=== PATIENT | female | born 1960 | race Caucasian/White ===

== ENCOUNTER 2016-12-07 10:46 | Inpatient (IN) | payer MEDICAID, OTHER ==
--- NOTE | 2016-12-07 11:55 | ED ---
Psych HPI - General Chief Complaint: Psychiatric Symptoms Stated Complaint: Mental Health Time Seen by Provider: 12/07/16 10:50 Source: patient, EMS, RN notes reviewed Mode of arrival: EMS Limitations: no limitations - History of Present Illness Initial Comments: This is a 56-year-old female presents emergency department via EMS for psychiatric evaluation. Patient is currently petition inserted by psychiatrist. Patient is a current manic state. Patient denies any homicidal or suicidal thoughts though there is reports of threats. Patient denies illicit drug use or alcohol use. Patient states she is taking her medication as directed. Patient denies any physical complaints at this time. - Related Data Home Medications Medication Instructions Recorded Confirmed Divalproex ER [Depakote ER] 500 mg PO DAILY 12/07/16 12/07/16 Divalproex [Depakote] 1,000 mg PO HS 12/07/16 12/07/16 Fluticasone Nasal [place] [Flonase 2 spray EA NOSTRIL DAILY PRN 12/07/16 12/07/16 Nasal [place]less] Loratadine [Claritin] 10 mg PO DAILY 12/07/16 12/07/16 clonazePAM [KlonoPIN] 1 mg PO DAILY 12/07/16 12/07/16 Allergies Allergy/AdvReac Type Severity Reaction Status Date / Time cephalexin monohydrate Allergy Unknown Verified 12/07/16 11:18 [From Keflex] codeine Allergy Unknown Verified 12/07/16 11:18 egg Allergy Unknown Verified 12/07/16 11:18 erythromycin base Allergy Unknown Verified 12/07/16 11:18 gluten Allergy Abdominal Verified 12/07/16 11:18 Pain green pepper Allergy Unknown Verified 12/07/16 11:18 milk Allergy Unknown Verified 12/07/16 11:18 Opioids - Morphine Analogues Allergy Unknown Verified 12/07/16 11:18 Penicillins Allergy Unknown Verified 12/07/16 11:18 Sulfa (Sulfonamide Allergy Unknown Verified 12/07/16 11:18 Antibiotics) tomato Allergy Unknown Verified 12/07/16 11:18 tramadol Allergy Unknown Verified 12/07/16 11:18 Review of Systems ROS Statement: Those systems with pertinent positive or pertinent negative responses have been documented in the HPI. ROS Other: All systems not noted in ROS Statement are negative. Past Medical History Past Medical History: Osteoarthritis (OA) Additional Past Medical History / Comment(s): Seasonal ALLERGIES, gastroesophageal reflux disease, chronic low back pain History of Any Multi-Drug Resistant Organisms: None Reported Past Surgical History: No Surgical Hx Reported Past Psychological History: Anxiety, Bipolar, Depression Smoking Status: Current every day smoker Past Alcohol Use History: Daily Past Drug Use History: Marijuana General Exam Limitations: no limitations General appearance: alert, in no apparent distress Head exam: Present: atraumatic, normocephalic, normal inspection Respiratory exam: Present: normal lung sounds bilaterally. Absent: respiratory distress, wheezes, rales, rhonchi, stridor Cardiovascular Exam: Present: regular rate, normal rhythm, normal heart sounds. Absent: systolic murmur, diastolic murmur, rubs, gallop, clicks Neurological exam: Present: alert, oriented X3, CN II-XII intact Psychiatric exam: Present: manic Skin exam: Present: warm, dry, intact, normal color. Absent: rash Course Vital Signs 12/07/16 10:50 Temperature 98 F Pulse Rate 74 Respiratory 20 Rate Blood Pressure 111/62 O2 Sat by Pulse 98 Oximetry Medical Decision Making - Lab Data Lab Results 12/07/16 Range/Units 11:50 Urine Opiates Screen Not Detected (NotDetected) Ur Oxycodone Screen Not Detected (NotDetected) Urine Methadone Screen Not Detected (NotDetected) Ur Propoxyphene Screen Not Detected (NotDetected) Ur Barbiturates Screen Not Detected (NotDetected) U Tricyclic Antidepress Not Detected (NotDetected) Ur Phencyclidine Scrn Not Detected (NotDetected) Ur Amphetamines Screen Not Detected (NotDetected) U Methamphetamines Scrn Not Detected (NotDetected) U Benzodiazepines Scrn Not Detected (NotDetected) Urine Cocaine Screen Not Detected (NotDetected) U Marijuana (THC) Screen Detected H (NotDetected) Disposition Clinical Impression: Psychosis, Kavitha (monopolar) single episode or unspecified Disposition: ADMITTED IP TO THIS HOSP
[2016-12-07] MEDS ORDERED: MAGNESIUM HYDROXIDE 2,400 MG/10 ML CUP PO PRN (14:13)
[2016-12-07] MEDS ORDERED: FLUTICASONE 50MCG/SPRAY NASAL 16GM EA NOSTRIL PRN (14:17)
[2016-12-07] MEDS ORDERED: LORazepam 2 MG/ML SYRINGE IM PRN ×2 (14:26→18:29)
[2016-12-07] MEDS ORDERED: ZIPRASIDONE 20 MG VIAL IM ONE (14:59)
[2016-12-07] MEDS: ZIPRASIDONE 20 MG VIAL IM PRN (14:59)
[2016-12-07] MEDS ORDERED: WATER FOR INJECTION, STERILE 10 ML IV ONE (14:59)
[2016-12-07] MEDS ORDERED: HALOPERIDOL LACTATE 5 MG/ML 1 ML VIAL IM PRN (16:13)
[2016-12-07] MEDS: BENZTROPINE 2 MG/2 ML AMP IM PRN (16:30)
[2016-12-07] MEDS ORDERED: cloNIDine HCL 0.2 MG TAB PO PRN (18:30)
[2016-12-07] MEDS: clonazePAM 1 MG TAB PO SCH (22:31)
[2016-12-07] MEDS: DIVALPROEX ER 500 MG TAB.ER.24H PO SCH (22:31)
[2016-12-08] MEDS: NICOTINE 14MG/24HR PATCH TRANSDERM SCH (09:04)
[2016-12-08] MEDS: LORATADINE 10 MG TAB PO SCH (09:04)
[2016-12-08] MEDS: DIVALPROEX ER 500 MG TAB.ER.24H PO SCH ×2 (09:04→19:14)
--- NOTE | 2016-12-08 09:34 | P.HP ---
Psychiatric H&P - . H&P Date: 12/08/16 History & Physical: IDENTIFYING DATA: Mrs. Kim is a 56-year-old female admitted to the psychiatric unit involuntarily. HISTORY OF PRESENT ILLNESS: According to the petition, completed by a nurse at [facility], she has been acting erratic and making statements to harm her . She has not been taking her psychiatric medications. I reviewed the medical record and attempted to interview Mrs. Cason. She was markedly manic, restless and hyperverbal. She began the interview by correcting me that her name is not Yoav it is Wilmer "H-O-O-D like Hector Guillen ". She alleged that she became unwell when her son and his girlfriend moved into their home. She talked about insisting that did not use drugs or alcohol then talked about picking up bottles "all over the house." She showed flight of ideas and pressured speech. She perseverated on several themes. She talked about having multiple medical problems and constant pain and at one point requested referral for rehabilitation. She talked about her son giving her methadone and her using every opiate "imaginable". She she is angry with her whom she blames for this hospitalization. She was very religiously preoccupied and left the office perseverating on the "blood of Sriram". According to information from [facility], she has been decompensating over the last few weeks. She refused various medication options presented to her during the medication reviews. She was angry, labile and complained of insomnia. Her current medications include BuSpar 5 mg 3 times a day, Depakote 500 mg in morning and 1000 mg at bedtime, Klonopin one milligrams at bedtime and Lexapro 5 mg daily. She refused to continue Abilify. She became angrier and left the office when I suggested treatment with such medications as Seroquel or Abilify. Her UDS was positive for marijuana. Her serum valproic acid level was 83.0 PAST PSYCHIATRIC HISTORY: She has been admitted to this unit 7 times; the last was in January 2016. Her discharge diagnoses was bipolar disorder depressed and her discharge medications included following psychotropic medications: Ativan 0.5 mg bedtime, Depakote 500 mg daily 1000 mg at bedtime, Desyrel 100 mg at bedtime and Zoloft 50 mg daily. PAST MEDICAL HISTORY: According to record she has a history of osteoarthritis, gastroesophageal reflux disease and chronic low back pain. ALLERGIES: She is ALLERGIC to cephalexin, codeine, erythromycin. morphine analogues, penicillin, sulfa and tramadol. SUBSTANCE USE HISTORY: She talked about using opiate drugs and requested referral for substance abuse treatment but her thinking was so disorganized that it was difficult to understand her answers to questions about her substance use and substance use history. According to the record she has history of crack cocaine, heroin and alcohol binge use. She been treated at [facility] in [place] in the past. There is no history of IV drug abuse. FAMILY PSYCHIATRIC/SUBSTANCE USE HISTORY: According to record her daughter, parent, son and 2 sisters have a bipolar disorder. Her daughter has alcohol use and drug use disorders. Her son has history of heroin use.. LEGAL HISTORY: She denied current legal problems SOCIAL HISTORY: She lives with her and milk in [place]. They have been for 36 years. She has 3 children and 6 grandchildren. MENTAL STATUS EXAM: She presented as a result restless and disheveled appearing 56-year-old female who was minimally cooperative with the interview. She made intermittent eye contact but appeared to attend to the interview. She had no prominent physical abnormalities were distinguishing features. She had a labile facial expression. She was alert and oriented to person and place. She was agitated, restless and irritable. Her speech was pressured to the point where she was foaming at the mouth. Her affect was irritable, angry and labile at times becoming intense and appropriate. She denied suicidal ideation, wishes or homicidal ideation. She denied feeling hopeless or helpless. She ruminated on several themes as described above. She did not express ideas of reference or paranoid ideation. She denied express a clear delusional belief. Her thinking was concrete and associations were not organized, coherent or logical. She express clang associations, perseverations and neologisms.. She denied hallucinations and did not appear to be responding to internal stimuli. Global impression of intellect is average. She is aware of her illness but denies need for mental health treatment. STRENGTHS: Supportive family, stable housing, engagement in outpatient mental health services. WEAKNESSES: Resistance to medical recommendations, sotero. IMPRESSION: She is a 56-year-old female who has a history of bipolar disorder. She presented with signs and symptoms of sotero that develop approximately 2-3 weeks prior to admission. She has been resistant to changes in her treatment despite several efforts from her outpatient psychiatrist. She should be treated involuntarily on the inpatient unit with a combination of psychotropic and multimodal therapy. PRINCIPLE DIAGNOSIS: Bipolar disorder manic severe RECOMMENDATION: Continue inpatient psychiatric hospitalization due to the severity of her sotero. Completed the second clinical certificate and submit the Petition and supporting Clinical Certificates to probate Court for involuntary hospitalization. Continue Depakote 1500 mg daily and begin an antipsychotic/mood stabilizer once we obtain an involuntary treatment order. Continue Ativan 1 mg by mouth/IM 3 times a day when necessary for agitation, Geodon 20 mg IM twice a day for agitation or psychosis and haloperidol 5 mg IM every 6 hours when necessary for agitation or psychosis. Suicide precautions with 15 minute checks. Consult medicine for initial physical exam and medical history. Monitor nutritional and hydration status. Obtain collateral information from family. Encourage participation in therapeutic groups and activities as tolerated. Evaluate clinical status response to treatment daily basis. Allergies Allergy/AdvReac Type Severity Reaction Status Date / Time cephalexin monohydrate Allergy Unknown Verified 12/07/16 11:18 [From Keflex] codeine Allergy Unknown Verified 12/07/16 11:18 egg Allergy Unknown Verified 12/07/16 11:18 erythromycin base Allergy Unknown Verified 12/07/16 11:18 gluten Allergy Abdominal Verified 12/07/16 11:18 Pain green pepper Allergy Unknown Verified 12/07/16 11:18 milk Allergy Unknown Verified 12/07/16 11:18 Opioids - Morphine Analogues Allergy Unknown Verified 12/07/16 11:18 Penicillins Allergy Unknown Verified 12/07/16 11:18 Sulfa (Sulfonamide Allergy Unknown Verified 12/07/16 11:18 Antibiotics) tomato Allergy Unknown Verified 12/07/16 11:18 tramadol Allergy Unknown Verified 12/07/16 11:18 Vital Signs Temp 98.1 F 12/07/16 18:26 Pulse 65 12/07/16 22:30 Resp 16 12/07/16 22:30 BP 98/54 12/07/16 22:30 Pulse Ox 93 L 12/07/16 18:26 Laboratory Last Values Urine Opiates Screen Not Detected (NotDetected) 12/07/16 11:50 Ur Oxycodone Screen Not Detected (NotDetected) 12/07/16 11:50 Urine Methadone Screen Not Detected (NotDetected) 12/07/16 11:50 Ur Propoxyphene Screen Not Detected (NotDetected) 12/07/16 11:50 Ur Barbiturates Screen Not Detected (NotDetected) 12/07/16 11:50 Valproic Acid 83.0 ug/mL 12/07/16 12:37 U Tricyclic Antidepress Not Detected (NotDetected) 12/07/16 11:50 Ur Phencyclidine Scrn Not Detected (NotDetected) 12/07/16 11:50 Ur Amphetamines Screen Not Detected (NotDetected) 12/07/16 11:50 U Methamphetamines Scrn Not Detected (NotDetected) 12/07/16 11:50 U Benzodiazepines Scrn Not Detected (NotDetected) 12/07/16 11:50 Urine Cocaine Screen Not Detected (NotDetected) 12/07/16 11:50 U Marijuana (THC) Screen Detected (NotDetected) H 12/07/16 11:50 12/08/16 07:52 12/08/16 09:06
[2016-12-08 10:43] LABS: ALT 29 U/L (9-52); AST 32 U/L (14-36); Alkaline Phosphatase 63 U/L (38-126); Anion Gap 10 mmol/L; Blood Urea Nitrogen 21 mg/dL (7-17); Calcium 9.9 mg/dL (8.4-10.2); Carbon Dioxide 27 mmol/L (22-30); Chloride 99 mmol/L (98-107); Glucose 88 mg/dL (74-99); Non-African American GFR(MDRD) 52 (>60 ml/min/1.73 sqM); Potassium 3.8 mmol/L (3.5-5.1); Sodium 136 mmol/L (137-145); Total Bilirubin 0.8 mg/dL (0.2-1.3); Total Protein 7.3 g/dL (6.3-8.2)
[2016-12-08 10:50] LABS: Basophils % (A) 0 %; CH 31.8; CHCM 33.9; Eosinophils % (A) 0 %; HCT 44.1 % (34.0-46.0); HDW 2.11; HGB 14.7 gm/dL (11.4-16.0); Luc # (Auto) 0.16; Luc % (Auto) 2; Lymphocytes # (A) 2.2 k/uL (1.0-4.8); Lymphocytes % (A) 23 %; MCH 31.4 pg (25.0-35.0); MCHC 33.4 g/dL (31.0-37.0); MCV 94.2 fL (80.0-100.0); Mean Platelet Volume 8.8; Monocytes # (A) 0.7 k/uL (0-1.0); Monocytes % (A) 8 %; Neutrophils # (A) 6.4 k/uL (1.3-7.7); Neutrophils % (A) 67 %; RBC 4.69 m/uL (3.80-5.40); RDW 13.5 % (11.5-15.5); WBC 9.7 k/uL (3.8-10.6); WBC (Perox) 9.38
[2016-12-08] MEDS: clonazePAM 1 MG TAB PO SCH (21:51)
[2016-12-09 04:33] LABS: Appearance,Urine Clear (Clear); Bilirubin,Urine Negative (Negative); Glucose,Urine (UA) Negative (Negative); Ketones,Urine Trace (Negative); Leukocyte Esterase,Urine Negative (Negative); Nitrite,Urine Negative (Negative); Protein,Urine Negative (Negative); Specific Gravity,Urine 1.009 (1.001-1.035); UA Billing (MACRO vs. MICRO) CHEM; Urobilinogen,Urine <2.0 mg/dL (<2.0)
[2016-12-09] MEDS ORDERED: WATER FOR INJECTION, STERILE 10 ML IV ONE ×2 (05:18→21:58)
[2016-12-09] MEDS ORDERED: ZIPRASIDONE 20 MG VIAL IM ONE ×3 (05:18→22:30)
[2016-12-09] MEDS: ZIPRASIDONE 20 MG VIAL IM PRN (05:18)
--- NOTE | 2016-12-09 07:57 | P.PN ---
Progress Note - Text Interval history: The patient is found in the library she follows me to an interview room. The patient was admitted for acute symptoms of sotero. She is currently maintained on Depakote ER 1500 mg. The patient remains pressured she has a constant stream of speech unless interrupted. Thought process is tangential and demonstrates loose associations sometimes flight of ideas. She remains resistant to initiating an antipsychotic mood stabilizer with her Depakote. It's reported that she slept only a few hours last evening. She reports appetite is stable. She speaks at length how several the antipsychotic medications are inappropriate for her. The process has been started for involuntary commitment/treatment. Mental status exam: The patient is a shorter statured overweight female she has a disheveled appearance with impaired hygiene. She is dressed in her own clothing. Eye contact is appropriate. Speech is fluent and spontaneous pressured at times. She demonstrates a thought process that is not well organized. She endorses no auditory or visual hallucinations. She may have a delusional thought content although not endorsed. Insight and judgment impaired. She demonstrates no verbal or physical aggressiveness. Affect is blunted. Plan: The patient will continue on her current medications we discussed several atypical antipsychotic options that we could add to the Depakote she refuses each. We will monitor for safety and encourage her participation in the milieu. Vital signs reviewed.
[2016-12-09] MEDS: DIVALPROEX ER 500 MG TAB.ER.24H PO SCH (08:39)
[2016-12-09] MEDS: NICOTINE 14MG/24HR PATCH TRANSDERM SCH (08:39)
[2016-12-09] MEDS: LORATADINE 10 MG TAB PO SCH (08:40)
[2016-12-09] MEDS: ACETAMINOPHEN TAB 325 MG TAB PO PRN ×2 (09:44→13:08)
[2016-12-09] MEDS ORDERED: diphenhydrAMINE 50 MG CAP ONE (22:30)
[2016-12-09] MEDS ORDERED: DIVALPROEX ER 500 MG TAB.ER.24H PO ONE (22:30)
[2016-12-09] MEDS ORDERED: MAG HYDROX/AL HYDROX/SIMETH 30 ML CUP ONE (22:30)
[2016-12-10] MEDS ORDERED: diphenhydrAMINE 25 MG CAP PO STA (02:12)
[2016-12-10] MEDS: IPRATROPIUM-ALBUTEROL 3 ML NEB INHALATION PRN ×4 (02:41→21:43)
--- NOTE | 2016-12-10 08:52 | P.PN ---
Progress Note - Text Interval history: The patient is found in the hallway she follows me to an interview room. The patient continues to demonstrate symptoms of sotero. She has a constant stream of speech. She demonstrates a labile affect. She reports "I've been sad for so long and now, I'm a butterfly" she reports sleep is decreased. She refuses to voluntarily take any antipsychotic other than Geodon. She has found the injections helpful and we discussed instituting an oral dose to tried to accelerate mood stabilization. Mental status exam: The patient is alert she is hyperactive she has pressured speech. Thought process demonstrates tangential thinking loose associations and flight of ideas. Affect demonstrates significant lability including tearfulness and laughter. She is reporting no suicidal or homicidal thoughts. She endorses no hallucinations but there may be some delusional thought content. Insight and judgment are impaired. She demonstrates no verbal or physical aggressiveness. She has fair hygiene she has a disheveled appearance. She is ambulating with an orthopedic walking boot on her lower extremity. Plan: The patient's will continue on the Depakote ER we will add Geodon 40 mg twice daily to try to further stabilize mood and addressing manic symptoms. Geodon will likely need to be titrated fairly quickly. Geodon is the only atypical antipsychotic she is agreeable to take at this time in addition to the Depakote. Vital signs reviewed. We will continue to monitor for safety and provide reality orientation when possible.
[2016-12-10] MEDS: LORATADINE 10 MG TAB PO SCH (09:30)
[2016-12-10] MEDS: NICOTINE 14MG/24HR PATCH TRANSDERM SCH (09:30)
[2016-12-10] MEDS: DIVALPROEX ER 500 MG TAB.ER.24H PO SCH ×3 (09:30→21:25)
[2016-12-10] MEDS: PANTOPRAZOLE 40 MG TABLET PO SCH (09:32)
[2016-12-10] MEDS: ZIPRASIDONE 40 MG CAP PO SCH ×2 (09:32→21:27)
[2016-12-10] MEDS: LORazepam 1 MG TAB PO PRN (11:14)
--- NOTE | 2016-12-10 15:37 | CONS ---
DATE OF CONSULTATION: 12/09/2016 REASON FOR CONSULTATION: Medical management of asthma/chronic obstructive pulmonary disease, osteoarthritis, GERD and other multiple medical problems. HISTORY OF PRESENT ILLNESS: Ms. Cason is a 56-year-old with known history of psychiatric illness, bipolar disorder, with multiple previous admissions to mental health unit, asthma, COPD, nicotine addiction, osteoarthritis, and chronic back pain. She was petitioned by a nurse at [facility]. The patient was behaving erratic and not taking her psychiatric medications. Currently, patient says that she has been very sweaty and she has been taking a lot of opiates at home. She has a history of opiate abuse in the past. Currently denies any chest pain. No increased shortness of breath. No orthopnea, no PND. No cough or sputum production. The patient does smoke one pack per day. Also positive for marijuana. Medicine service has been asked for management of medical problems. REVIEW OF SYSTEMS: CONSTITUTIONAL: No fever. No chills. No weakness. RESPIRATORY: Patient does have cough. No sputum production. Patient does have shortness of breath. CARDIOVASCULAR: No chest pain. No leg swelling. MUSCULOSKELETAL: Left leg pain and back pain. PSYCHIATRIC: Appears to be psychotic and manic. All other 14-point review of systems negative as above. The patient is also a poor historian. PAST MEDICAL HISTORY: Osteoarthritis, GERD, asthma/COPD, chronic back pain, history of opiate drug abuse, nicotine addiction. PAST SURGICAL HISTORY: Left leg surgery. Currently in a prosthesis. SOCIAL HISTORY: Patient lives with her and currently in [place]. Patient does smoke 1 pack per day. Has a history of opiate drug abuse and alcohol abuse. Also history of crack cocaine, heroin and alcohol binge drinking. FAMILY HISTORY: History of CHF in father and heart disease. Diabetes in the family. ALLERGIES: 1. Cephalexin. 2. Codeine. 3. Erythromycin. 4. Morphine. 5. Penicillin, 6. Sulfa. 7. Tramadol. HOME MEDICATIONS: Depakote, fluticasone nasal spray, Claritin, Klonopin. PHYSICAL EXAMINATION: A 56-year-old female, lying in bed comfortably, awake, alert, oriented, x3. The patient is in no apparent distress. VITALS: Blood pressure is 176/86, pulse is 98, respirations 18, temperature afebrile, pulse ox is 94% on room air. HEENT: Atraumatic, normocephalic. NECK: Supple. No JVD. CVS: S1, S2 heard. LUNGS: Bilateral air entry is present, rhonchi positive. Prolonged expiratory phase. Nonlabored breathing. ABDOMEN: Soft, nontender. Bowel sounds present. 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 No focal deficit. EXTREMITIES: No edema. Pulses palpable bilaterally. No clubbing or cyanosis. PSYCHIATRIC: Cooperative. MUSCULOSKELETAL: The patient does have left leg prosthesis with heel prosthesis with history of multiple surgeries. SKIN: Cold, clammy, diaphoretic. PSYCHIATRIC: Cooperative. LABORATORY DATA: WBC 9.7, hemoglobin 14.7, platelets 149. Sodium 136, potassium 3.8, chloride 99, bicarb is 21, ( ) 27, BUN 21, creatinine 1.09. UDS positive for marijuana. UA negative. IMPRESSION: 1. Chronic obstructive pulmonary disease/asthma, with mild exacerbation. We will start on breathing treatments. Continue to monitor closely. 2. Bipolar disorder, currently an inpatient psychiatric unit. 3. Acute opiate withdrawal. Continue the Ativan at this time. 4. Nicotine addiction. 5. Gastroesophageal reflux disease. 6. Osteoarthritis and chronic back pain. 7. Polysubstance abuse. 8. Marijuana use. 9. Deep venous thrombosis prophylaxis, patient, is currently ambulatory. PLAN: The patient will be continued on breathing treatments as well as DuoNeb. No need for steroids at this time. We will continue the psychiatric medications. Monitor for opiate withdrawal symptoms. Follow closely. Further recommendations based on clinical course. Thank you for your consult. We will follow with you closely.
[2016-12-10] MEDS: clonazePAM 1 MG TAB PO SCH ×2 (18:27→21:26)
[2016-12-10] MEDS: MAG HYDROX/AL HYDROX/SIMETH 30 ML CUP PO PRN (21:27)
[2016-12-11] MEDS: ZIPRASIDONE 20 MG VIAL IM PRN (01:54)
[2016-12-11] MEDS ORDERED: WATER FOR INJECTION, STERILE 10 ML IV ONE (01:54)
[2016-12-11] MEDS: ZIPRASIDONE 40 MG CAP PO SCH ×2 (08:54→20:38)
[2016-12-11] MEDS: PANTOPRAZOLE 40 MG TABLET PO SCH (08:54)
[2016-12-11] MEDS: LORATADINE 10 MG TAB PO SCH (08:54)
[2016-12-11] MEDS: DIVALPROEX ER 500 MG TAB.ER.24H PO SCH ×2 (08:54→20:38)
[2016-12-11] MEDS: NICOTINE 14MG/24HR PATCH TRANSDERM SCH (08:55)
[2016-12-11] MEDS: IPRATROPIUM-ALBUTEROL 3 ML NEB INHALATION PRN ×2 (11:06→21:12)
--- NOTE | 2016-12-11 12:53 | P.PN ---
Progress Note - Text CLINICAL PROBLEMS: Ms. Kim is a 56-year-old female who has history of a bipolar disorder. She presented to unit with signs and symptoms of acute sotero. She also perseverated on abuse of narcotic pain medications. However, her UDS was positive for marijuana only. 24 HOUR EVENTS: She slept only 4 hours last night. She has been restless and intrusive. EXAMINATION: He presented as disheveled appearing short 56-year-old female who was hyperverbal and restless. She did not make eye contact and did not appear to attend to the interview. She had a distressed facial expression. She was agitated but showed no abnormal involuntary movements. Her speech was spontaneous with increased rate, rhythm and volume. She demonstrated pressured speech. Her affect was labile but in control. She did not express suicidal ideation or wishes. She denied homicidal ideation. She denied depressive cognitions such as hopelessness, helplessness or worthlessness. She perseverated on the belief that she has a narcotic use problem and must be transferred to a substance abuse treatment program. Her thinking was organized , coherent and goal directed. She demonstrated clang associations and neologisms. She denied hallucinations and did not appear to be responding to internal stimuli. PERTINENT DATA: he was compliant with prescribed medications including Geodon 40 mg twice a day. The group therapist described her as demanding, hospital and irritable. Her thought processes disorganized and she demonstrates flight of ideas and loose associations. She is hyperverbal and attempts to dominate the group conversation. ASSESSMENT: She continues to show signs and symptoms of sotero. PLAN: Continue inpatient hospitalization. Probate hearing pending. Continue suicide precautions with 15 minute checks. Continue Depakote 1500 mg daily in divided doses. Continue Geodon 40 mg by mouth twice a day and titrated according to clinical response and tolerance. Encourage participation in therapeutic groups and activities as tolerated. Evaluate clinical status response to treatment daily basis.
[2016-12-11] MEDS: MAG HYDROX/AL HYDROX/SIMETH 30 ML CUP PO PRN ×2 (14:43→21:42)
[2016-12-11] MEDS: LORazepam 1 MG TAB PO PRN ×2 (14:43→23:21)
[2016-12-11] MEDS: clonazePAM 1 MG TAB PO SCH (20:38)
[2016-12-12] MEDS: MAG HYDROX/AL HYDROX/SIMETH 30 ML CUP PO PRN (02:35)
[2016-12-12] MEDS ORDERED: LORazepam 1 MG TAB PO STA (06:48)
[2016-12-12] MEDS: LORATADINE 10 MG TAB PO SCH (09:44)
[2016-12-12] MEDS: ZIPRASIDONE 60 MG CAP PO SCH ×2 (09:46→22:07)
[2016-12-12] MEDS: DIVALPROEX ER 500 MG TAB.ER.24H PO SCH ×2 (09:46→22:07)
[2016-12-12] MEDS: PANTOPRAZOLE 40 MG TABLET PO SCH (09:47)
[2016-12-12] MEDS: NICOTINE 14MG/24HR PATCH TRANSDERM SCH (09:48)
--- NOTE | 2016-12-12 13:00 | P.PN ---
Progress Note - Text CLINICAL PROBLEMS: She is a 56-year-old woman who has a history of bipolar disorder. She presented to unit involuntarily with signs and symptoms of sotero. 24 HOUR EVENTS: She slept 3 hours last night. The therapy staff describe her as restless, disorganized, intrusive and hyperverbal. EXAMINATION: She presented as disheveled appearing short amount of the female who was pleasant on approach. She maintained contact and appeared to attend to interview. She appeared sedated and her speech was slightly slurred. She had difficulty remaining seated. Her affect was blunted. She did not express ideas reference or paranoid ideation. Her thinking was concrete and associations were not coherent or logical. She did not appear to be responding to internal stimuli. PERTINENT DATA: She received 1 mg of lorazepam last night for agitation. Her probate hearing is scheduled for 12/15/2016. ASSESSMENT: She is sedated from the lorazepam, Depakote and Geodon. However, she continues to show signs and symptoms of ostero. PLAN: Continue inpatient hospitalization due to severity of her sotero. Continue suicide precautions with 15 minute checks. Continue Depakote 500 mg daily and 1000 mg at bedtime. Increase Geodon to 60 mg by mouth twice a day and titrated according to clinical response and tolerance. Continue Haldol 5 mg IM every 6 hours when necessary for agitation or acute psychosis and/or lorazepam 1 mg by mouth/IM every 6 8 hours when necessary for anxiety or agitation. Encourage participation in therapeutic groups as tolerated. Evaluate clinical status response to treatment daily basis.
[2016-12-12] MEDS: LORazepam 1 MG TAB PO PRN (14:39)
[2016-12-12] MEDS: clonazePAM 1 MG TAB PO SCH (22:07)
[2016-12-13] MEDS: LORazepam 1 MG TAB PO PRN (00:48)
[2016-12-13] MEDS: ACETAMINOPHEN TAB 325 MG TAB PO PRN (03:39)
[2016-12-13] MEDS: LORATADINE 10 MG TAB PO SCH (08:17)
[2016-12-13] MEDS: NICOTINE 14MG/24HR PATCH TRANSDERM SCH (08:18)
[2016-12-13] MEDS: ZIPRASIDONE 60 MG CAP PO SCH ×2 (08:18→20:41)
[2016-12-13] MEDS: PANTOPRAZOLE 40 MG TABLET PO SCH (08:19)
[2016-12-13] MEDS: IPRATROPIUM-ALBUTEROL 3 ML NEB INHALATION PRN ×2 (10:57→21:58)
[2016-12-13] MEDS: clonazePAM 1 MG TAB PO SCH (20:41)
[2016-12-13] MEDS: DIVALPROEX ER 500 MG TAB.ER.24H PO SCH (20:41)
[2016-12-13] MEDS: MAG HYDROX/AL HYDROX/SIMETH 30 ML CUP PO PRN (21:55)
[2016-12-14] MEDS: LORazepam 1 MG TAB PO PRN ×2 (00:35→09:37)
[2016-12-14] MEDS: IPRATROPIUM-ALBUTEROL 3 ML NEB INHALATION PRN ×4 (02:07→21:45)
[2016-12-14] MEDS: LORATADINE 10 MG TAB PO SCH (09:35)
[2016-12-14] MEDS: PANTOPRAZOLE 40 MG TABLET PO SCH (09:35)
[2016-12-14] MEDS: NICOTINE 14MG/24HR PATCH TRANSDERM SCH (09:35)
[2016-12-14] MEDS: ZIPRASIDONE 80 MG CAP PO SCH ×2 (09:59→21:28)
--- NOTE | 2016-12-14 13:29 | P.PN ---
Progress Note - Text CLINICAL PROBLEMS: Bipolar disorder manic severe 24 HOUR EVENTS: She remains restless and irritable but posed no management problem and displayed no episodes of beer dyscontrol. She continues to attend therapeutic groups and activities but is described by therapeutic staff is disorganized and unable to focus her attention. She had conflict this morning with another patient who is mentally handicapped. She was abrasive and critical to the point where she almost performed fight. She slept 2 hours last night. EXAMINATION: She presented as a disheveled and labile 56-year-old woman. She was irritable, argumentative and demanding. She was restless. Her speech was rapid and she she displayed clang associations and pressured speech. She denied suicidal ideation or wishes. She denied homicidal ideation. She did not express clear ideas reference or paranoid ideation. Her thinking was concrete and associations were not coherent, logical or goal directed. She denied hallucinations and did not appear to be responding to internal stimuli. ASSESSMENT: She continued show signs and symptoms of sotero. Overall, she appears severely mentally ill and minimally improve from admission. PLAN: Continue inpatient hospitalization due to severity of the manic symptoms. Continue Depakote 1500 mg at bedtime. Increase Geodon to 80 mg by mouth twice a day. She may benefit from a second mood stabilizer. Continue suicide precautions with 15 minute checks. Encourage continued participation in therapeutic groups and activities. Evaluate clinical status response to treatment daily basis.
[2016-12-14] MEDS: DIVALPROEX ER 500 MG TAB.ER.24H PO SCH (21:27)
[2016-12-14] MEDS: clonazePAM 1 MG TAB PO SCH (21:27)
[2016-12-15] MEDS: IPRATROPIUM-ALBUTEROL 3 ML NEB INHALATION PRN ×3 (09:10→23:44)
[2016-12-15] MEDS: NICOTINE 14MG/24HR PATCH TRANSDERM SCH (09:41)
[2016-12-15] MEDS: LORATADINE 10 MG TAB PO SCH (09:41)
[2016-12-15] MEDS: ZIPRASIDONE 80 MG CAP PO SCH ×2 (09:41→21:19)
[2016-12-15] MEDS: PANTOPRAZOLE 40 MG TABLET PO SCH (09:41)
[2016-12-15] MEDS: LORazepam 1 MG TAB PO PRN (11:28)
--- NOTE | 2016-12-15 14:22 | P.PN ---
Progress Note - Text CLINICAL PROBLEMS: Bipolar disorder manic severe 24 HOUR EVENTS: She remains restless and irritable but posed no management problem and displayed no episodes of beer dyscontrol. She attended only one therapeutic group yesterday. She slept 4 hours last night. EXAMINATION: She presented as a disheveled 56-year-old woman who was pleasant on approach.. She was not irritable, argumentative or demanding. Her speech remains rapid and she continues to display clang associations and pressured speech. She denied suicidal ideation or wishes. She denied homicidal ideation. She perseverated about her need for substance abuse treatment alleging that she abuses opiate pain medication. She talked about "doctor shopping" and nourished obtain additional prescriptions for opiate pain medications and receiving methadone from her son (who is in a methadone treatment program for opiate dependence). She did not express clear ideas reference or paranoid ideation. Her thinking was concrete and associations were not coherent, logical or goal directed. She denied hallucinations and did not appear to be responding to internal stimuli. ASSESSMENT: She continued show signs and symptoms of sotero. Overall, she appears severely mentally ill but moderately improve from admission. PLAN: Continue inpatient hospitalization due to severity of the manic symptoms. Continue Depakote 1500 mg at bedtime. Increase Geodon to 80 mg by mouth twice a day. She may benefit from a second mood stabilizer. Continue suicide precautions with 15 minute checks. Encourage continued participation in therapeutic groups and activities. Evaluate clinical status response to treatment daily basis.
[2016-12-15] MEDS: ACETAMINOPHEN TAB 325 MG TAB PO PRN (17:54)
[2016-12-15] MEDS: DIVALPROEX ER 500 MG TAB.ER.24H PO SCH (21:19)
[2016-12-15] MEDS: clonazePAM 0.5 MG TAB PO SCH (21:19)
[2016-12-16] MEDS: LORazepam 1 MG TAB PO PRN ×2 (02:39→22:26)
[2016-12-16] MEDS: ACETAMINOPHEN TAB 325 MG TAB PO PRN ×2 (06:20→22:25)
[2016-12-16] MEDS: LORATADINE 10 MG TAB PO SCH (10:02)
[2016-12-16] MEDS: PANTOPRAZOLE 40 MG TABLET PO SCH (10:02)
[2016-12-16] MEDS: ZIPRASIDONE 80 MG CAP PO SCH ×2 (10:02→21:26)
[2016-12-16] MEDS: NICOTINE 14MG/24HR PATCH TRANSDERM SCH (10:02)
--- NOTE | 2016-12-16 12:57 | P.PN ---
Progress Note - Text SUBJECTIVE: I reviewed the medical record and interviewed Mr. Cason. She is a 56-year-old woman who has a history of a bipolar disorder. She presented to unit with signs symptoms of acute sotero. She perseverated about her need for substance abuse treatment and asked if I had heard from [facility] regarding her admission. She complained that she did not sleep well last night and attributed her poor sleep to the behavior of admission. She reported no side effects current dose of Depakote and Geodon. She believes that she has improved greatly since she started the Geodon wishes to continue the medication after discharge. OBJECTIVE: He presented as a casually groomed short 56-year-old female who was pleasant on approach. She had just taken a shower and her hair was still wet. She made eye contact and attended the interview. She had a blunted but appropriate facial expression. She showed no abnormality of psychomotor activity and no abnormal involuntary movements. Her speech was rapid but she was not hyperverbal. Her affect was blunted and slightly depressed. She denied suicidal ideation or wishes. She denied feeling hopeless, helpless or worthless. She ruminated on her substance abuse history, family problems and need for substance abuse treatment. She did not express ideas reference or paranoid ideation. Her thinking was concrete and associations were not fully coherent and organized. She did not demonstrate clang associations, neologisms or blocking. She denied hallucinations and did not appear to responding to internal stimuli. She slept 4 hours last night. ASSESSMENT: She is much less manic to admission. Overall, she appears moderately mentally ill and much improved from admission. PLAN: Continue inpatient psychiatric hospitalization. Continue suicide precautions with 15 minute checks. Continue Depakote ER 1500 mg at bedtime and Geodon 80 mg by mouth twice a day. Continue clonazepam 0.5 mg at bedtime and continue to taper then discontinue. 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 Encourage continued compliance with medication and participation in therapeutic groups and activities. Evaluate clinical status response to treatment on a daily basis.
[2016-12-16] MEDS: clonazePAM 0.5 MG TAB PO SCH (21:26)
[2016-12-16] MEDS: DIVALPROEX ER 500 MG TAB.ER.24H PO SCH (21:26)
[2016-12-16] MEDS: IPRATROPIUM-ALBUTEROL 3 ML NEB INHALATION PRN (22:37)
[2016-12-17] MEDS: ACETAMINOPHEN TAB 325 MG TAB PO PRN ×2 (06:24→14:30)
[2016-12-17] MEDS: PANTOPRAZOLE 40 MG TABLET PO SCH (09:32)
[2016-12-17] MEDS: ZIPRASIDONE 80 MG CAP PO SCH ×2 (09:32→21:06)
[2016-12-17] MEDS: LORATADINE 10 MG TAB PO SCH (09:32)
[2016-12-17] MEDS: NICOTINE 14MG/24HR PATCH TRANSDERM SCH (09:32)
[2016-12-17] MEDS: NICOTINE 21MG/24HR PATCH TRANSDERM SCH (12:05)
--- NOTE | 2016-12-17 12:06 | P.PN ---
Progress Note - Text SUBJECTIVE: I reviewed the medical record and interviewed Mr. Cason. She is a 56-year-old woman who has a history of a bipolar disorder. She presented to unit with signs symptoms of acute sotero. She had practical concerns complaining that the 14 mg dose of NicoDerm was ineffective, she required regular dosing of the fluticasone nasal spray and question whether she needs to continue the Synthroid. She smokes one pack of cigarettes per day and would probably benefit from a 21 mg dose of NicoDerm. I reviewed her laboratory studies to explain that her most recent TSH level was normal. OBJECTIVE: He presented as a casually groomed short 56-year-old female who was pleasant on approach. She made eye contact and attended the interview. She had a blunted but bright facial expression. She showed no abnormality of psychomotor activity and no abnormal involuntary movements. Her speech was rapid but she was not hyperverbal. Her affect was stable and appropriate. She denied suicidal ideation or wishes. She denied feeling hopeless, helpless or worthless. She does not ruminate about her substance use problems. She did not express ideas reference or paranoid ideation. Her thinking was concrete and associations were not fully coherent and organized. She showed flight of ideas but did not demonstrate clang associations, neologisms or blocking. She denied hallucinations and did not appear to responding to internal stimuli. She can slept 4 hours last night. ASSESSMENT: She is much less manic to admission. Overall, she appears moderately mentally ill and much improved from admission. PLAN: Continue inpatient psychiatric hospitalization. Continue suicide precautions with 15 minute checks. Continue Depakote ER 1500 mg at bedtime and Geodon 80 mg by mouth twice a day. Continue clonazepam 0.5 mg at bedtime and continue to taper then discontinue. Change NicoDerm to 20 mg daily and fluticasone nasal spray to 2 puffs twice a day. 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 Encourage continued compliance with medication and participation in therapeutic groups and activities. Evaluate clinical status response to treatment on a daily basis.
[2016-12-17] MEDS: IPRATROPIUM-ALBUTEROL 3 ML NEB INHALATION PRN ×2 (14:05→21:43)
[2016-12-17] MEDS: LORazepam 1 MG TAB PO PRN ×2 (14:30→23:25)
[2016-12-17] MEDS: FLUTICASONE 50MCG/SPRAY NASAL 16GM EA NOSTRIL SCH ×2 (15:15→23:24)
[2016-12-17] MEDS: BENZTROPINE 2 MG/2 ML AMP IM PRN (16:33)
[2016-12-17] MEDS: clonazePAM 0.5 MG TAB PO SCH (21:06)
[2016-12-17] MEDS: DIVALPROEX ER 500 MG TAB.ER.24H PO SCH (21:06)
[2016-12-18] MEDS: LORATADINE 10 MG TAB PO SCH (09:00)
[2016-12-18] MEDS: ZIPRASIDONE 80 MG CAP PO SCH ×2 (09:00→20:55)
[2016-12-18] MEDS: FLUTICASONE 50MCG/SPRAY NASAL 16GM EA NOSTRIL SCH ×2 (09:00→20:55)
[2016-12-18] MEDS: NICOTINE 21MG/24HR PATCH TRANSDERM SCH (09:00)
[2016-12-18] MEDS: PANTOPRAZOLE 40 MG TABLET PO SCH (09:00)
[2016-12-18] MEDS: IPRATROPIUM-ALBUTEROL 3 ML NEB INHALATION PRN ×2 (10:39→20:20)
--- NOTE | 2016-12-18 14:35 | PN ---
DATE OF SERVICE: 12/18/2016 This is a 56-year-old woman who was admitted with COPD, admitted by Psychiatry with also COPD. Patient also complaining of skin lesions superficially on the left shoulder which is being activated periodically according to her. No chest pain, no palpitatio, no fever. On exam, alert and oriented x3. Pulse 81, blood pressure 95/72, respirations 17, temperature 98 degrees, pulse ox normal. HEENT: Normal, oral mucosa normal. NECK: No jugular venous distension, no thyroid enlargement, no lymph node enlargement. CARDIOVASCULAR SYSTEM: S1, S2, muffled. No S3, no S4. RESPIRATORY: Breath sounds diminished at the bases, no rhonchi, no crackles. ABDOMEN: Soft, obese, nontender. LEGS: No edema, no swelling. SKIN: The skin is superficial cellulitis and ulcer present in the left scapular. Lab investigations are CBC within normal limits, platelets 149, sodium 136. ASSESSMENT: 1. Known acute cellulitis in the left scapular area. 2. History of probable sebaceous cyst. 3. Hyponatremia, mild. 4. History of chronic obstructive pulmonary disease. 5. History of bipolar, acute opiate withdrawal. 6. History of nicotine dependence. 7. History of gastroesophageal reflux disease. 8. History of degenerative joint disease. 9. History of polysubstance abuse. 10. History of THC. 11. Deep venous thrombosis prophylaxis. RECOMMENDATION: In this 56-year-old woman who presented with multiple medical issues, at this time I would recommend to continue symptomatic treatment. Otherwise, I would also to recommend a short course of antibiotics. Otherwise, repeat labs may be been done and I would also recommend the patient to follow up with primary physician closely.
--- NOTE | 2016-12-18 15:12 | P.PN ---
Progress Note - Text SUBJECTIVE: I reviewed the medical record and interviewed Mr. Cason. She is a 56-year-old woman who has a history of a bipolar disorder. She presented to unit with signs symptoms of acute sotero. She expresses several concerns in a rapid and somewhat aggressive manner. She remains preoccupied about receiving substance abuse treatment. She does not want to live with her . She talked about either moving her visiting [facility]. An example of how disorganized thinking was I asked her why she wants to visit them. 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 [place] is all of the state you know ..." OBJECTIVE: He presented as a casually groomed short 56-year-old female who was pleasant on approach. She made eye contact and attended the interview. She had a labile facial expression. At times she appeared depressed and cried. Her speech was pressured and rapidl. Her affect was labile and at times intense. She denied suicidal ideation or wishes. She denied feeling hopeless, helpless or worthless. She did not express ideas reference or paranoid ideation. Her thinking was concrete and associations were not fully coherent and organized. She showed flight of ideas but did not demonstrate clang associations, neologisms or blocking. She denied hallucinations and did not appear to responding to internal stimuli. She can slept 4 hours last night. Her serum valproic acid level this morning was 98.9. galley worker reported that [facility] will need a copy of the discharge summary before they would consider an admission. ASSESSMENT: She presents with a mixed mood state. Overall, she appears moderately mentally ill and much improved from admission. PLAN: Continue inpatient psychiatric hospitalization. Continue suicide precautions with 15 minute checks. Continue Depakote ER 1500 mg at bedtime and Geodon 80 mg by mouth twice a day. Continue clonazepam 0.5 mg at bedtime and continue to taper then discontinue. Encourage continued compliance with medication and participation in therapeutic groups and activities. Evaluate clinical status response to treatment on a daily basis.
[2016-12-18] MEDS: LEVOFLOXACIN 500 MG TAB PO SCH (15:17)
[2016-12-18] MEDS: LORazepam 1 MG TAB PO PRN ×2 (16:23→23:02)
[2016-12-18] MEDS: MAG HYDROX/AL HYDROX/SIMETH 30 ML CUP PO PRN (20:55)
[2016-12-18] MEDS: DIVALPROEX ER 500 MG TAB.ER.24H PO SCH (20:55)
[2016-12-18] MEDS: clonazePAM 0.5 MG TAB PO SCH (20:55)
[2016-12-18] MEDS: ACETAMINOPHEN TAB 325 MG TAB PO PRN (23:01)
[2016-12-19] MEDS: MAG HYDROX/AL HYDROX/SIMETH 30 ML CUP PO PRN ×2 (00:51→19:05)
[2016-12-19] MEDS: ACETAMINOPHEN TAB 325 MG TAB PO PRN ×2 (06:22→08:53)
[2016-12-19] MEDS: NICOTINE 21MG/24HR PATCH TRANSDERM SCH (06:22)
[2016-12-19] MEDS: LORATADINE 10 MG TAB PO SCH (08:53)
[2016-12-19] MEDS: PANTOPRAZOLE 40 MG TABLET PO SCH (08:53)
[2016-12-19] MEDS: FLUTICASONE 50MCG/SPRAY NASAL 16GM EA NOSTRIL SCH ×2 (08:53→21:53)
[2016-12-19] MEDS: ZIPRASIDONE 80 MG CAP PO SCH ×2 (08:53→21:53)
[2016-12-19] MEDS: IPRATROPIUM-ALBUTEROL 3 ML NEB INHALATION PRN ×4 (08:57→20:54)
[2016-12-19] MEDS: LORazepam 1 MG TAB PO PRN ×2 (09:58→22:24)
--- NOTE | 2016-12-19 12:56 | P.PN ---
Progress Note - Text SUBJECTIVE: I reviewed the medical record, interviewed Ms. Carreon discussed her treatment and treatment plan during team meeting. She was expecting discharged today. She had pressed the director social to schedule a family meeting with an uncle. She became acutely distressed when I told that we did not feel that she is ready to leave today. She has improved considerably but she only slept 2 hours last night. She attributed the poor sleep to a new roommate who was snoring loudly. With much support she accepted my recommendation to remain in the hospital until we can address her sleep. However, she wishes to be discharged by the end of the week. We discussed treatment options to address her poor sleep, mood lability and rapid sleep. She was not interested in cross titrating Depakote and lithium. She declined Seroquel but agreed to a trial of haloperidol. OBJECTIVE: She presented as a slightly disheveled appearing 56-year-old woman who was pleasant on approach. She made eye contact and attended the interview. She had a distressed facial expression. And cried intermittently during the interview. She showed slight psychomotor retardation but no abnormal involuntary movements. Her speech was rapid with normal volume. Her affect was labile and slightly depressed. She denied suicidal ideation or wishes. She denied feeling hopeless, helpless or worthless. She did not express phobias, ideas reference or paranoid ideation. Her thinking was concrete but her associations were coherent and logical. She denied hallucinations and did not appear to responding to internal stimuli. ASSESSMENT: She presents with a mixed mood state but without suicidal ideation or depressive cognitions. Overall, she is moderately mentally ill and much improved from admission. PLAN: Continue inpatient hospitalization. Continue suicide precautions with 15 minute checks. Continue Depakote ER 1500 mg at bedtime and Geodon 80 mg by mouth twice a day. Begin a trial of Haldol 1 mg at bedtime for treatment of residual manic symptoms. Decrease clonazepam to 0.25 mg at bedtime. Family meeting scheduled for today. Provide [facility] with a copy of her discharge summary. Encouraged continued participation in Groups and activities. Evaluate clinical status response to treatment on a daily basis.
[2016-12-19] MEDS: LEVOFLOXACIN 500 MG TAB PO SCH (14:14)
[2016-12-19] MEDS: IBUPROFEN 200 MG TAB PO SCH ×2 (16:09→21:52)
--- NOTE | 2016-12-19 17:32 | PN ---
DATE OF SERVICE: 12/19/2016 This 56-year-old woman who was admitted with cellulitis of the left suprascapular area is also complaining of back pains, nodular swelling in the back, also. No chest pain. No palpitation. No fever. On exam, alert and oriented x3. Pulse is 74, blood pressure 101/58, respiration 16, temperature 97.7, pulse ox normal. HEENT: Conjunctivae normal. NECK: No jugular venous distention. CARDIOVASCULAR SYSTEM: S1, S2 muffled. RESPIRATORY SYSTEM: Breath sounds diminished at the bases. No rhonchi. No crackles. ABDOMEN: Soft, non-tender. LEGS: No edema. No swelling. NERVOUS SYSTEM: No focal deficit. BACK: Small ulcer which is healing in the left scapular area. Also small nodules noted in the low back area, possibly lipoma or neurofibroma. LABS: Sodium 136, creatinine 1.09. THC is positive. ASSESSMENT: 1. Acute cellulitis of the left scapular area. 2. Possible history of sebaceous cyst or chronic lesion in the left scapular area. 3. Mild hyponatremia. 4. History of chronic obstructive pulmonary disease. 5. History of bipolar. 6. Acute opiate withdrawal. 7. History of nicotine dependence. 8. History of gastroesophageal reflux disease. 9. History of degenerative joint disease. 10. History of polysubstance abuse. 11. History of tetrahydrocannabinol. 12. History of deep venous thrombosis prophylaxis. RECOMMENDATIONS AND DISCUSSION: I recommend to continue with the current medications, continue with symptomatic treatment. I recommend continuing with antibiotics. I recommend outpatient followup with Dermatology or Surgery for possible biopsy and definitive treatment. Discussed with the patient, who understands and agrees. Continue symptomatic treatment.
[2016-12-19] MEDS ORDERED: clonazePAM 0.5 MG TAB PO SCH (21:00)
[2016-12-19] MEDS ORDERED: HALOPERIDOL 1 MG TAB PO SCH (21:00)
[2016-12-19] MEDS: DIVALPROEX ER 500 MG TAB.ER.24H PO SCH (21:52)
[2016-12-20] MEDS: BENZTROPINE 2 MG/2 ML AMP IM PRN (01:16)
[2016-12-20] MEDS ORDERED: QUEtiapine 100 MG TAB PO STA (02:37)
[2016-12-20] MEDS: PANTOPRAZOLE 40 MG TABLET PO SCH (08:17)
[2016-12-20] MEDS: LORATADINE 10 MG TAB PO SCH (10:07)
[2016-12-20] MEDS: IBUPROFEN 200 MG TAB PO SCH ×4 (10:08→22:31)
[2016-12-20] MEDS: ZIPRASIDONE 80 MG CAP PO SCH ×2 (10:09→20:13)
[2016-12-20] MEDS: FLUTICASONE 50MCG/SPRAY NASAL 16GM EA NOSTRIL SCH ×2 (10:09→20:13)
[2016-12-20] MEDS: NICOTINE 21MG/24HR PATCH TRANSDERM SCH (10:12)
[2016-12-20] MEDS: LORazepam 1 MG TAB PO PRN ×2 (10:14→18:44)
--- NOTE | 2016-12-20 13:50 | P.PN ---
Progress Note - Text SUBJECTIVE: I reviewed the medical record, interviewed Mr. Carreon and discussed her treatment and treatment plan during team meeting. She complained of feeling tired and fatigued. She did not sleep last night despite receiving the 1 mg dose of haloperidol. We discussed treatment options and agreed to discontinue Haldol, increase clonazepam back to 1 mg at bedtime and begin a trial of lithium 30 mg twice a day. OBJECTIVE: She presented as disheveled-appearing sedated and fatigued 56-year- old woman. She was pleasant on approach and attended to the interview. She had a distressed facial expression and cried intermittently during the interview. She showed slight psychomotor retardation but no abnormal involuntary movements. Her speech was spontaneous with slight increase in rate and rhythm. Her affect was dysphoric. She denied suicidal ideation or wishes. She expresses feelings of hopelessness but denied helplessness or worthlessness. She ruminated about her inability to sleep and her inability to get well enough to be discharged to the substance abuse rehabilitation program. Her picking was concrete but her associations were coherent and logical. She denied hallucinations and did not appear to be responding to internal stimuli. Nursing administered 1milligram of Cogentin IM yesterday evening for complaints of muscle soreness and stiffness. She slept 1 hour last night. ASSESSMENT: She appears to have developed a dystonia from 1 mg dose of Haldol. She is showing a mixed manic state with elements of depression and hypomania. PLAN: Continue inpatient hospitalization. Discontinue Haldol. Increase Klonopin to 1 mg at bedtime. Begin lithium 300 mg twice a day. Continue Depakote ER 1500 mg at bedtime and Geodon 80 mg twice a day. Evaluate clinical status response to treatment on a daily basis.
[2016-12-20] MEDS: LEVOFLOXACIN 500 MG TAB PO SCH (14:09)
[2016-12-20] MEDS: LITHIUM CARBONATE 300 MG CAP PO SCH (20:13)
[2016-12-20] MEDS: DIVALPROEX ER 500 MG TAB.ER.24H PO SCH (20:13)
[2016-12-20] MEDS: clonazePAM 1 MG TAB PO SCH (20:13)
[2016-12-20] MEDS: IPRATROPIUM-ALBUTEROL 3 ML NEB INHALATION PRN (21:00)
[2016-12-20] MEDS ORDERED: MIRTAZAPINE 15 MG TAB PO STA (23:00)
[2016-12-21] MEDS: IBUPROFEN 200 MG TAB PO SCH ×3 (08:14→21:09)
[2016-12-21] MEDS: FLUTICASONE 50MCG/SPRAY NASAL 16GM EA NOSTRIL SCH ×2 (08:14→20:03)
[2016-12-21] MEDS: ZIPRASIDONE 80 MG CAP PO SCH (08:16)
[2016-12-21] MEDS: LORATADINE 10 MG TAB PO SCH (08:16)
[2016-12-21] MEDS: LITHIUM CARBONATE 300 MG CAP PO SCH ×2 (08:16→20:03)
[2016-12-21] MEDS: NICOTINE 21MG/24HR PATCH TRANSDERM SCH (08:16)
[2016-12-21] MEDS: PANTOPRAZOLE 40 MG TABLET PO SCH (08:16)
[2016-12-21] MEDS: IPRATROPIUM-ALBUTEROL 3 ML NEB INHALATION PRN ×2 (10:45→21:16)
[2016-12-21] MEDS ORDERED: traZODone HCL 100 MG TAB PO PRN (12:19)
--- NOTE | 2016-12-21 12:40 | P.PN ---
Progress Note - Text SUBJECTIVE: I reviewed the medical record, interviewed Ms. Cason discussed her treatment and treatment plan during team meeting. She requested to continue the medication she received because she believes she "slept like a baby " all night after receiving the medication (Remeron). She complained of feeling sedated this morning and when I initially approach to her she was sleeping soundly in her room. She denied side effects to lithium. She remains preoccupied about being discharged to the [facility] substance abuse treatment program. I once again explained that they will not consider her for admission until she completes her treatment for mental illness. OBJECTIVE: She presented as a disheveled appearing short moderately obese woman who was pleasant on approach. She had a blunted but bright facial expression. She was alert but appeared sedated. She showed psychomotor retardation but no abnormal involuntary movements. She had a slow but steady gait. Her speech was spontaneous with a slight increase in rate; and her speech was not pressured. Her affect was blunted but stable and appropriate. She did not express feeling hopeless or helpless. She did not express ideas reference or paranoid ideation. Her thinking was concrete. Associations were coherent. She denied hallucinations and did not appear to responding to internal stimuli. She slept 4 hours last night after receiving 15 mg of Remeron (after 1 mg of clonazepam, 300 mg of lithium, 1500 mg of Depakote ER and 80 milligrams of Geodon). ASSESSMENT: She is sedated but is less manic/hypomanic. She has continued problems with sleep initiation and sleep maintenance. PLAN: Continue inpatient hospitalization. Continue current 1500 mg at bedtime, clonazepam 1 mg at bedtime, lithium 300 mg twice a day. Change dosing of Geodon to 40 mg a.m. and 120 mg at bedtime. Trazodone 100 mg at bedtime when necessary for sleep. Try to avoid other antidepressant medications since any worsening her manic/hypomanic symptoms. Continue Ativan 1 mg by mouth 3 times a day for anxiety or agitation. Titrate lithium according to come response and tolerance. Evaluate clinical status response to treatment on a daily basis.
[2016-12-21] MEDS: LEVOFLOXACIN 250 MG TAB PO SCH (14:05)
[2016-12-21 15:14] VITALS: BMI 34.7
[2016-12-21] MEDS: LORazepam 1 MG TAB PO PRN (18:20)
[2016-12-21] MEDS: clonazePAM 1 MG TAB PO SCH (20:03)
[2016-12-21] MEDS: DIVALPROEX ER 500 MG TAB.ER.24H PO SCH (20:03)
[2016-12-21] MEDS: ZIPRASIDONE 40 MG CAP PO SCH (20:03)
[2016-12-21] MEDS ORDERED: ZIPRASIDONE 80 MG CAP PO SCH (21:00)
[2016-12-22] MEDS: ZIPRASIDONE 40 MG CAP PO SCH ×2 (07:42→20:52)
[2016-12-22] MEDS: PANTOPRAZOLE 40 MG TABLET PO SCH (07:42)
[2016-12-22] MEDS: NICOTINE POLACRILEX 2 MG GUM BUCCAL PRN ×7 (08:01→22:55)
[2016-12-22] MEDS: FLUTICASONE 50MCG/SPRAY NASAL 16GM EA NOSTRIL SCH ×2 (08:31→20:52)
[2016-12-22] MEDS: LORATADINE 10 MG TAB PO SCH (08:32)
[2016-12-22] MEDS: LITHIUM CARBONATE 300 MG CAP PO SCH ×2 (08:32→20:52)
[2016-12-22] MEDS: IBUPROFEN 200 MG TAB PO SCH ×3 (08:33→20:58)
--- NOTE | 2016-12-22 11:18 | P.PN ---
Progress Note - Text SUBJECTIVE: I reviewed the medical record, interviewed Ms. Carreon discussed her treatment and treatment plan during team meeting. She complained about the length of her hospitalization and the continuation of her stay. I explained that she was markedly unwell when she first presented to the hospital and I congratulated her on the level of improvement she has shown. I agreed to discharge her on Sunday if her sleep remains stable and consistent. OBJECTIVE: She presented as a casually groomed 56-year-old short moderately obese female who was pleasant on approach. She made eye contact and attended the interview. She was not restless or agitated. Her speech had normal rate, rhythm and volume. She was irritable but appropriate. She denied suicidal ideation or wishes she denied feeling hopeless, helpless or worthless. She did not express paranoid ideation or ideas reference. Her thinking was concrete but her associations were coherent and logical. She denied hallucinations and did not appear to responding to internal stimuli. She slept 6 hours last night, did not require trazodone 100 mg at nighttime and only received 1 dose of lorazepam 1 mg during the day. ASSESSMENT: She is less hypomanic and her sleep has improved significantly. PLAN: Continue psychiatric hospitalization. Continue current medications: Depakote ER 1500 mg at bedtime, lithium 300 mg twice a day, Geodon 40 mg a.m. and 120 mg at bedtime, clonazepam 1 mg at bedtime and trazodone 100 mg at bedtime when necessary for sleep. If her sleep remains stable over the weekend to discharge her on Sunday. Provide [facility] with a copy of her discharge summary and evaluate clinical status response to treatment on a daily basis.
[2016-12-22] MEDS: LEVOFLOXACIN 250 MG TAB PO SCH (14:06)
[2016-12-22] MEDS: LORazepam 1 MG TAB PO PRN ×2 (14:59→22:55)
[2016-12-22] MEDS: DIVALPROEX ER 500 MG TAB.ER.24H PO SCH (20:52)
[2016-12-22] MEDS: clonazePAM 1 MG TAB PO SCH (20:52)
[2016-12-22] MEDS: IPRATROPIUM-ALBUTEROL 3 ML NEB INHALATION PRN ×2 (21:27→21:45)
[2016-12-23] MEDS: NICOTINE POLACRILEX 2 MG GUM BUCCAL PRN ×4 (05:03→18:59)
[2016-12-23] MEDS: LITHIUM CARBONATE 300 MG CAP PO SCH ×2 (07:59→20:33)
[2016-12-23] MEDS: ZIPRASIDONE 40 MG CAP PO SCH ×2 (07:59→20:33)
[2016-12-23] MEDS: IBUPROFEN 200 MG TAB PO SCH ×3 (07:59→22:26)
[2016-12-23] MEDS: FLUTICASONE 50MCG/SPRAY NASAL 16GM EA NOSTRIL SCH ×3 (07:59→22:23)
[2016-12-23] MEDS: PANTOPRAZOLE 40 MG TABLET PO SCH (08:00)
[2016-12-23] MEDS: LORATADINE 10 MG TAB PO SCH (08:00)
[2016-12-23] MEDS: LEVOFLOXACIN 250 MG TAB PO SCH (12:27)
[2016-12-23] MEDS: IPRATROPIUM-ALBUTEROL 3 ML NEB INHALATION PRN ×2 (15:18→20:04)
--- NOTE | 2016-12-23 20:14 | P.PN ---
Progress Note - Text Date of service:03/25/2017 Chief complaint: "and feeling tired and sleepy" Subjective: The patient has been seen today as follow-up, chart reviewed, case discussed with the treatment team. patient presented with a chief complaint that she feels groggy. Patient requested to cut down on psychotropic medications including lithium. Patient has been explained about her psychotropic medication and discussed with her to hold on the Klonopin for the next 2 nights and would observe her symptoms of oversedation. Patient denies feeling hopeless or suicidal and she minimized depression. She minimized anxiety symptoms. She denies any appetite problems. She reported sleeping 'too much' and she feels groggy when she wake up Review of other systems: Patient denies any physical symptoms besides what has been mentioned above. No breathing problems, no chest pain reported today. Objective: Vitals has been reviewed. Mental status examination: patient appears his stated age adequately groomed, was no specific features. Patient has a steady gait with no abnormal movement. Patient was partially cooperative with average eye contact. Patient presented was no psychomotor agitation or retardation. Speech was normal rate stressed and articulated. She denies feeling depressed and her affect was constricted. Thought form: She presented goal-directed, linear, and coherent. Thought content: Non-delusional, denies suicidal or homicidal thoughts. Perception: Denies any auditory or visual hallucinations. Attention: No impairment. Orientation: Patient patient was fully oriented to time place person and situation. Insight: Patient has limited insight about his psychiatric disorder. Judgment: Patient has limited judgment about his psychiatric treatment. Assessment: bipolar disorder Plan: continue psychiatric hospitalization Continue Depakote 1500 mg at bedtime [place] continue lithium 300 mg twice daily Continue Geodon 40 mg a.m. and one 120 mg at bedtime hold Klonopin for reported oversedation and sleepiness Discharge planning is in going.
[2016-12-23] MEDS: DIVALPROEX ER 500 MG TAB.ER.24H PO SCH (20:33)
[2016-12-23] MEDS: LORazepam 1 MG TAB PO PRN (20:34)
[2016-12-24 00:08] VITALS: TEMP 98.1
[2016-12-24] MEDS: NICOTINE POLACRILEX 2 MG GUM BUCCAL PRN ×7 (04:26→21:34)
[2016-12-24] MEDS: FLUTICASONE 50MCG/SPRAY NASAL 16GM EA NOSTRIL SCH ×2 (09:16→20:44)
[2016-12-24] MEDS: LORATADINE 10 MG TAB PO SCH (09:17)
[2016-12-24] MEDS: ZIPRASIDONE 40 MG CAP PO SCH ×2 (09:17→20:43)
[2016-12-24] MEDS: PANTOPRAZOLE 40 MG TABLET PO SCH (09:17)
[2016-12-24] MEDS: LITHIUM CARBONATE 300 MG CAP PO SCH ×2 (09:17→20:43)
[2016-12-24] MEDS: IPRATROPIUM-ALBUTEROL 3 ML NEB INHALATION PRN ×4 (09:19→20:10)
[2016-12-24] MEDS: IBUPROFEN 200 MG TAB PO SCH ×3 (09:37→20:43)
--- NOTE | 2016-12-24 12:32 | P.PN ---
Progress Note - Text Date of service:03/26/2017 Chief complaint: "I am feeling better today" Subjective: The patient has been seen today as follow-up, chart reviewed, case discussed with the treatment team. Patient stated that she feels much better today, and denies feeling groggy or over sedated. Patient reported had very good sleep last night and wake up active without groggy feeling. Patient denies feeling depressed and he denies severe anxiety. She denies feeling hopeless and denies suicidal ideation. Patient denies severe mood disturbances or drastic mood changes and she denies any manic or psychotic symptoms. She reported continued to have fair appetite and sleep. Review of other systems: Patient denies any physical symptoms besides what has been mentioned above. No breathing problems, no chest pain reported today. Objective: Vitals has been reviewed. Mental status examination: patient appears his stated age adequately groomed, was no specific features. Patient has a steady gait with no abnormal movement but she wears boat in L leg. Patient was partially cooperative with average eye contact. Patient presented was no psychomotor agitation or retardation. Speech was normal rate stressed and articulated. She denies feeling depressed and her affect was constricted. Thought form: She presented goal-directed, linear, and coherent. Thought content: Non-delusional, denies suicidal or homicidal thoughts. Perception: Denies any auditory or visual hallucinations. Attention: No impairment. Orientation: Patient patient was fully oriented to time place person and situation. Insight: Patient has limited insight about his psychiatric disorder. Judgment: Patient has limited judgment about his psychiatric treatment. Assessment: bipolar disorder Plan: continue psychiatric hospitalization Continue Depakote 1500 mg at bedtime continue lithium 300 mg twice daily Continue Geodon 40 mg a.m. and one 120 mg at bedtime Keep hold Klonopin and probably consider as when necessary. The patient responded very well to hold Klonopin at night and she was more active and less groggy today Discharge planning is in going.
[2016-12-24] MEDS: LEVOFLOXACIN 250 MG TAB PO SCH (13:31)
[2016-12-24] MEDS: DIVALPROEX ER 500 MG TAB.ER.24H PO SCH (20:43)
[2016-12-25] MEDS: ACETAMINOPHEN TAB 325 MG TAB PO PRN (01:39)
[2016-12-25] MEDS: NICOTINE POLACRILEX 2 MG GUM BUCCAL PRN ×3 (06:06→10:55)
[2016-12-25] MEDS: PANTOPRAZOLE 40 MG TABLET PO SCH (08:53)
[2016-12-25] MEDS: ZIPRASIDONE 40 MG CAP PO SCH (08:53)
[2016-12-25] MEDS: FLUTICASONE 50MCG/SPRAY NASAL 16GM EA NOSTRIL SCH ×2 (08:53→08:57)
[2016-12-25] MEDS: IBUPROFEN 200 MG TAB PO SCH (08:53)
[2016-12-25] MEDS: LORATADINE 10 MG TAB PO SCH (08:55)
[2016-12-25] MEDS: LITHIUM CARBONATE 300 MG CAP PO SCH (08:55)
[2016-12-25 09:02] VITALS: BP 98/54; PULSE 76; RESP 16
[2016-12-25] MEDS: IPRATROPIUM-ALBUTEROL 3 ML NEB INHALATION PRN (09:14)
--- NOTE | 2016-12-25 12:18 | P.DS ---
Providers Date of admission: 12/07/16 14:08 Attending physician: Fantasma Mayfield MD Consults: 12/17/16 14:13 Consult Physician Routine Consulting Provider: Isabella Hammond Consult Reason/Comments: For treatment and evaluation of lesion on back of left shoulder Do you want consulting provider notified?: Yes Primary care physician: Tobi Moe - Discharge Diagnosis(es) (1) Bipolar I disorder, most recent episode manic, severe without psychotic features Current Visit: Yes Status: Acute Priority: High (2) COPD (chronic obstructive pulmonary disease) Current Visit: Yes Status: Chronic Priority: Low (3) Tobacco use disorder Current Visit: Yes Status: Chronic Priority: Low (4) Opioid use disorder, mild, abuse Current Visit: Yes Status: Chronic Hospital Course: rs. Kim is a 56-year-old female admitted to the psychiatric unit involuntarily. According to the petition, completed by a nurse at [facility], she has been acting erratic and making statements to harm her . She has not been taking her psychiatric medications. I reviewed the medical record and attempted to interview Mrs. Cason. She was markedly manic, restless and hyperverbal. She began the interview by correcting me that her name is not Yoav it is Guillen "H-O-O-D like Hector Guillen ". She alleged that she became unwell when her son and his girlfriend moved into their home. She talked about insisting that did not use drugs or alcohol then talked about picking up bottles "all over the house." She showed flight of ideas and pressured speech. She perseverated on several themes. She talked about having multiple medical problems and constant pain and at one point requested referral for rehabilitation. She talked about her son giving her methadone and her using every opiate "imaginable". She she is angry with her whom she blames for this hospitalization. She was very religiously preoccupied and left the office perseverating on the "blood of Sriram". According to information from [facility], she has been decompensating over the last few weeks. She refused various medication options presented to her during the medication reviews. She was angry, labile and complained of insomnia. Her current medications include BuSpar 5 mg 3 times a day, Depakote 500 mg in morning and 1000 mg at bedtime, Klonopin one milligrams at bedtime and Lexapro 5 mg daily. She refused to continue Abilify. She became angrier and left the office when I suggested treatment with such medications as Seroquel or Abilify. Her UDS was positive for marijuana. Her serum valproic acid level was 83.0 She has been admitted to this unit 7 times; the last was in January 2016. Her discharge diagnoses was bipolar disorder depressed and her discharge medications included following psychotropic medications: Ativan 0.5 mg bedtime, Depakote 500 mg daily 1000 mg at bedtime, Desyrel 100 mg at bedtime and Zoloft 50 mg daily. She talked about using opiate drugs and requested referral for substance abuse treatment but her thinking was so disorganized that it was difficult to understand her answers to questions about her substance use and substance use history. According to the record she has history of crack cocaine, heroin and alcohol binge use. She been treated at [facility] in [place] in the past. There is no history of IV drug abuse. We admitted her to the psychiatric unit involuntarily under the care of this screenplay writer. She was severely manic and agitated. We provided a biopsychosocial assessment. The party plan sales consultant completed the initial physical exam and medical history and diagnosis chronic obstructive pulmonary disease/asthma, acute opiate withdrawal, nicotine use disorder, GERD, osteoarthritis, chronic back pain, marijuana use and a history of deep vein thrombosis. The party plan sales consultant recommended to continue on breathing treatments as well as DuoNeb. We submitted the Petition and supporting Clinical Certificate as a probate court to proceed with involuntary hospitalization. When she met with her ip attorney she agreed to defer the probate hearing. We continued Depakote ER and titrated dose to 1500 mg at bedtime. Her serum valproic acid level was 98.9. She agreed to a trial of Geodon for the treatment of her sotero. We gradually titrated dose of Geodon to 80 mg by mouth twice a day. She showed a decrease in the level of sotero but did not return to an euthymic state. She only slept between 1 and 4 hours per night. He unsuccessfully attempted to taper her off of clonazepam. She was unable to tolerate even 1 mg haloperidol in addition to the Geodon and Depakote. Her sotero began to abated when we added lithium 300 mg twice a day to her medication regimen. Her sleep improved only after we adjusted the Geodon last to where she took the majority at at bedtime. Throughout the hospitalization she was preoccupied about being transferred to [facility] for substance abuse treatment. She talked about abusing oral opiate pain medications and obtaining methadone from her son. We contacted [facility] but they would not accept her for admission to the severity of her mental illness. They requested a copy of the discharge summary to evaluate her suitability for their treatment program. At the time of discharge she was sleeping 4-7 hours per night. She was not restless or hyperactive. Her affect was stable. Her speech was not pressured. Her thinking was organized, coherent and goal directed. Patient Condition at Discharge: Stable Plan - Discharge Summary New Discharge Prescriptions: Cetirizine HCl [Zyrtec] 5 mg PO DAILY #30 tab clonazePAM [KlonoPIN] 1 mg PO DAILY #30 Divalproex ER [Depakote ER] 1,500 mg PO HS #90 tab Fluticasone Nasal [place] [Flonase Nasal [place]] 2 spray EA NOSTRIL DAILY PRN #1 PRN Reason: Allergy Symptoms Ipratropium-Albuterol Nebulize [Duoneb 0.5 mg-3 mg/3 ml Soln] 3 ml INHALATION RT -Q4H PRN #1 neb PRN Reason: AHSAN Levofloxacin [Levaquin] 250 mg PO Q24H #10 tab [place] Carbonate 300 mg PO BID #60 cap Nicotine Polacrilex [Quit 2] 2 mg BUCCAL Q2H PRN #14 lozenge PRN Reason: Nicotine Cravings Pantoprazole [Protonix] 40 mg PO AC-BRKFST #30 tab Ziprasidone [Geodon] 40 mg PO AC-BRKFST #30 cap Ziprasidone [Geodon] 120 mg PO HS #90 cap Discharge Medication List Cetirizine HCl [Zyrtec] 5 mg PO DAILY #30 tab 12/25/16 [Rx] Divalproex ER [Depakote ER] 1,500 mg PO HS #90 tab 12/25/16 [Rx] Fluticasone Nasal [place] [Flonase Nasal [place]] 2 spray EA NOSTRIL DAILY PRN #1 12/25/16 [Rx] Ipratropium-Albuterol Nebulize [Duoneb 0.5 mg-3 mg/3 ml Soln] 3 ml INHALATION RT -Q4H PRN #1 neb 12/25/16 [Rx] Levofloxacin [Levaquin] 250 mg PO Q24H #10 tab 12/25/16 [Rx] [place] Carbonate 300 mg PO BID #60 cap 12/25/16 [Rx] Nicotine Polacrilex [Quit 2] 2 mg BUCCAL Q2H PRN #14 lozenge 12/25/16 [Rx] Pantoprazole [Protonix] 40 mg PO AC-BRKFST #30 tab 12/25/16 [Rx] Ziprasidone [Geodon] 40 mg PO AC-BRKFST #30 cap 12/25/16 [Rx] Ziprasidone [Geodon] 120 mg PO HS #90 cap 12/25/16 [Rx] clonazePAM [KlonoPIN] 1 mg PO DAILY #30 12/25/16 [Rx] Follow up Appointment(s)/Referral(s): [facility] [Outside] - 01/01/17 2:00 pm (Appointment [facility] Sarah Quiroz Sunday January 01, 2017 2pm) Tobi Moe DO [Primary Care Provider] - 1-2 days Patient Instructions/Handouts: How to Stop Smoking (DC), Bipolar Disorder (DC) Activity/Diet/Wound Care/Special Instructions: No alcohol or street drugs, activity as tolerated, diet as tolerated, remove firearms from home. Follow up with outpatient provider as set up at time of discharge, follow up with primary care physician in one to two days. Call crisis line or [phone] if having thoughts or hurting yourself or anyone else. Discharge Disposition: HOME SELF-CARE
[2016-12-25] MEDS: LEVOFLOXACIN 250 MG TAB PO SCH (13:02)
== END 2016-12-25 13:04 | disposition home or self-care (01) | DRG 885 ==
LOC: EC 10:46 → 3MHU 14:08
PROVIDERS: ADMIT Psychiatry & Neurology Psychiatry; ATTEND Psychiatry & Neurology Psychiatry
DX: F31.13 Bipolar disorder, current episode manic without psychotic features, severe (principal); E87.1 Hypo-osmolality and hyponatremia; F11.23 Opioid dependence with withdrawal; L03.114 Cellulitis of left upper limb; E66.9 Obesity, unspecified; F12.90 Cannabis use, unspecified, uncomplicated; F17.210 Nicotine dependence, cigarettes, uncomplicated; G47.00 Insomnia, unspecified; G89.29 Other chronic pain; J44.9 Chronic obstructive pulmonary disease, unspecified; K21.9 Gastro-esophageal reflux disease without esophagitis; M19.90 Unspecified osteoarthritis, unspecified site; Z79.899 Other long term (current) drug therapy; Z82.49 Family history of ischemic heart disease and other diseases of the circulatory system; Z86.718 Personal history of other venous thrombosis and embolism; Z81.3 Family history of other psychoactive substance abuse and dependence; Z81.8 Family history of other mental and behavioral disorders; L98.499 Non-pressure chronic ulcer of skin of other sites with unspecified severity
CPT/HCPCS: 36415; 80053; 80164; 80306; 81003; 82075; 84443; 85025; 94640; 99285

== ENCOUNTER → 2020-12-17 | Outpatient (CLI) | payer OTHER ==
[2020-12-17 13:18] VITALS: BP 114/75; PULSE 86; RESP 18; TEMP 98.6
--- NOTE | 2020-12-17 13:57 | P.GSHP ---
History of Present Illness H&P Date: 12/17/20 Chief Complaint: pain in her left breast Katherin is a 60 -year-old white female seen in consultation for Dr. Storey regarding pain in her left breast. She does not feel any lumps masses or nodules of concern in either breast. She states that she was being seen at [facility] last procedure was an ultrasound core biopsy done on [id number] this revealed fibrocystic change. It was of the left breast at the 2 to 3 o'clock position. She has not had any radiographic studies since that time secondary to COVID. She has only had one biopsy in the past and that was of her left breast. She is not complaining of any nipple discharge or skin changes. The pain in her left breast is intermittent. She does not know what causes it. It last approximately 20-30 minutes. It is aching in nature, and sore. She is not complaining of any trauma or recent infection in the breast. Caffeine: ice tea all day nicotine: none chocolate: none Family History: mother: breast fibroid no cancer Hormonal history: Menarche: 9 M1 breast fed: yes, age at first : 20 menopause: 49 BCP: 6 months hormones: none Surgical history: left foot times three parathyroid (Ca level was high) tonsil tubal Medical history: high calcium foot pain chronic low back pain GERD hypothyroid Social History: smoke: none alcohol: occasional drugs: none - Constitutional Constitutional: Denies chills, Denies fever - EENT Eyes: bilateral blurred vision, denies pain Ears: deny: decreased hearing, tinnitus Ears, nose, mouth and throat: Denies headache, Denies sore throat - Breasts Breasts: bilateral: as per HPI - Cardiovascular Cardiovascular: Denies chest pain, Denies shortness of breath - Respiratory Comment: COPD; used to smoke stopped 2 months ago, smoked 8 cig/day for 40 years Respiratory: Denies cough, Denies 7 - Gastrointestinal Gastrointestinal: Denies abdominal pain, Denies diarrhea, Denies nausea, Denies vomiting - Genitourinary (Female) Genitourinary: Denies dysuria, Denies hematuria - Menstruation Menstruation: Reports postmenopausal - Musculoskeletal Musculoskeletal: Reports as per HPI - Integumentary Integumentary: Denies pruritus, Denies rash - Neurological Neurological: Denies numbness, Denies weakness - Psychiatric Psychiatric: Denies anxiety, Denies depression - Endocrine Endocrine: Reports weight change, Denies fatigue - Hematologic/Lymphatic Comment: none - Allergic/Immunologic Allergic/Immunologic: Reports seasonal allergies Past Medical History Past Medical History: Osteoarthritis (OA) Additional Past Medical History / Comment(s): Seasonal ALLERGIES, gastroesophageal reflux disease, chronic low back pain History of Any Multi-Drug Resistant Organisms: None Reported Past Surgical History: No Surgical Hx Reported Past Psychological History: Anxiety, Bipolar, Depression Smoking Status: Former smoker Past Alcohol Use History: Daily Past Drug Use History: Marijuana Medications and Allergies Home Medications Medication Instructions Recorded Confirmed Type Albuterol Inhaler (Mhu) [Ventolin 2 inhalation PO Q6H PRN 12/25/16 12/17/20 History Hfa Inhaler (Mhu)] Cetirizine HCl [Zyrtec] 5 mg PO DAILY #30 tab 12/25/16 12/17/20 Rx Fluticasone Nasal [place] [Flonase 2 spray EA NOSTRIL DAILY PRN #1 12/25/16 12/17/20 Rx Nasal [place]] Levothyroxine Sodium [Synthroid] 88 mcg PO DAILY 12/17/20 12/17/20 History [place] Carbonate 450 mg PO BID 12/17/20 12/17/20 History Omeprazole 40 mg PO DAILY 12/17/20 12/17/20 History clonazePAM [KlonoPIN] 0.25 mg PO DAILY 12/17/20 12/17/20 History Allergies Allergy/AdvReac Type Severity Reaction Status Date / Time cephalexin monohydrate Allergy Unknown Verified 12/17/20 13:13 [From Keflex] codeine Allergy Unknown Verified 12/17/20 13:13 egg Allergy Unknown Verified 12/17/20 13:13 erythromycin base Allergy Unknown Verified 12/17/20 13:13 gluten Allergy Abdominal Verified 12/17/20 13:13 Pain green pepper Allergy Unknown Verified 12/17/20 13:13 milk Allergy Unknown Verified 12/17/20 13:13 Opioids - Morphine Analogues Allergy Unknown Verified 12/17/20 13:13 Penicillins Allergy Unknown Verified 12/17/20 13:13 Sulfa (Sulfonamide Allergy Unknown Verified 12/17/20 13:13 Antibiotics) tomato Allergy Unknown Verified 12/17/20 13:13 tramadol Allergy Unknown Verified 12/17/20 13:13 Surgical - Exam Vital Signs Temp Pulse Resp BP Pulse Ox 98.6 F 86 18 114/75 98 12/17/20 13:16 12/17/20 13:16 12/17/20 13:16 12/17/20 13:16 12/17/20 13:16 BMI 41.8 - General no distress - Eyes normal ocular movement - ENT normal pinna, normal nares - Neck no masses, trachea midline - Respiratory normal expansion, normal respiratory effort, clear to auscultation - Cardiovascular Rhythm: regular Heart Sounds: normal: S1, S2 - Abdomen Abdomen: soft - Integumentary normal turgor - Neurologic no disoriented, no combative - Musculoskeletal normal gait - Psychiatric oriented to time, oriented to person, oriented to place, speech is normal, memory intact breast exam: BRA: 42C inspection: grade 3 ptosis bilateral palpation: right breast: Multi-positional exam, fibrocystic changes no dominant masses or nodules of concern Right axilla: No adenopathy of concern Left breast: Multiple positional exam fibrocystic changes, particularly attention to the lateral area does not reveal any dominant masses or nodules of concern Left axilla: No adenopathy of concern Results Patient's prior mammograms, ultrasound and pathology results reviewed Assessment and Plan Assessment: Impression: 1. Mastodynia left breast result of this time 2. Fibrocystic breast changes 3. High caffeine intake with iced tea 4. Patient is not had a recent radiographic evaluation of the breast Plan: 1. Lifestyle modification decrease caffeine intake may decrease fibrocystic changes in breast. 2. Bilateral breast mammogram 3. Follow-up after mammogram 4. At this time there is no lesion on examination which would warrant interventional biopsy Cc: Dr. Ruffin Encounter: breast pain fibrocystic breast disease Review of old test/ and new test ordered Patient has bilateral mammogram ordered and will have follow up appt. also encouraged to modify lifestyle.
== END ==
LOC: WWCWWP 12:44
PROVIDERS: ATTEND Surgery
DX: N60.12 Diffuse cystic mastopathy of left breast (principal); F15.90 Other stimulant use, unspecified, uncomplicated; E03.9 Hypothyroidism, unspecified; K21.9 Gastro-esophageal reflux disease without esophagitis; M19.90 Unspecified osteoarthritis, unspecified site; F41.9 Anxiety disorder, unspecified; F31.9 Bipolar disorder, unspecified; Z79.890 Hormone replacement therapy; Z79.899 Other long term (current) drug therapy; Z87.891 Personal history of nicotine dependence; Z88.1 Allergy status to other antibiotic agents; Z88.2 Allergy status to sulfonamides; Z88.0 Allergy status to penicillin; Z88.5 Allergy status to narcotic agent; Z88.8 Allergy status to other drugs, medicaments and biological substances; Z91.012 Allergy to eggs; Z91.011 Allergy to milk products; Z91.02 Food additives allergy status; Z88.6 Allergy status to analgesic agent